=== PATIENT | female | born 1980 ===

== ENCOUNTER 2017-03-21 16:49 | Emergency (ER) | payer OTHER ==
[2017-03-21 17:17] VITALS: BP 124/77; PULSE 98; RESP 16; TEMP 97.4; O2SAT 100
--- NOTE | 2017-03-21 17:43 | ED PDOC ---
Lower Extremity Pain/Injury Time Seen by Provider: 03/21/17 17:32 Chief Complaint (Nursing): Lower Extremity Problem/Injury Chief Complaint (Provider): Left knee pain History Per: Patient History/Exam Limitations: no limitations Onset/Duration Of Symptoms: Days (x2) Current Symptoms Are (Timing): Still Present Additional Complaint(s): 36 y/o female, approximately 16 weeks , presents to the emergency department complaining of pain behind the left knee since yesterday. No injury or trauma. Patient any chest pain or shortness of breath. PMD: Provider TBD Past Medical History Reviewed: Historical Data, Nursing Documentation, Vital Signs Vital Signs: Last Vital Signs Temp 97.4 F L 03/21/17 17:15 Pulse 98 H 03/21/17 17:15 Resp 16 03/21/17 17:15 BP 124/77 03/21/17 17:15 Pulse Ox 100 03/21/17 17:15 - Medical History PMH: No Chronic Diseases - Family History Family History: States: Unknown Family Hx - Home Medications Home Medications: Ambulatory Orders Medication Instructions Recorded Acetaminophen [Acetaminophen Extra 2 tab PO Q6 PRN #24 tablet 03/21/17 Strength] - Allergies Allergies/Adverse Reactions: Allergies Allergy/AdvReac Type Severity Reaction Status Date / Time No Known Allergies Allergy Verified 03/21/17 17:15 Review of Systems ROS Statement: Except As Marked, All Systems Reviewed And Found Negative Cardiovascular: Negative for: Chest Pain Respiratory: Negative for: Shortness of Breath Musculoskeletal: Positive for: Leg Pain (left knee) Neurological: Negative for: Weakness, Numbness Physical Exam - Reviewed Nursing Documentation Reviewed: Yes Vital Signs Reviewed: Yes - Physical Exam Appears: Positive for: Well, Non-toxic, No Acute Distress Head Exam: Positive for: ATRAUMATIC, NORMAL INSPECTION, NORMOCEPHALIC Skin: Positive for: Normal Color, Warm, Dry Eye Exam: Positive for: EOMI, Normal appearance, PERRL Pulses-Dorsalis Pedis (L): 2+ Pulses-Dorsalis Pedis (R): 2+ Extremity: Positive for: Capillary Refill (< 2 sec). Negative for: Tenderness ( bony tenderness), Swelling, Other (Homans sign) Neurologic/Psych: Positive for: Alert, Oriented. Negative for: Motor/Sensory Deficits - ECG O2 Sat by Pulse Oximetry: 100 (RA) Pulse Ox Interpretation: Normal - Progress ED Course And Treament: DUPLEX LEFT LEG: NEG FOR DVT Medical Decision Making Medical Decision Making: Initial Impression: 36 y/o female with left knee pain, r/o DVT Time: 17:36 Initial Plan: --US Duplex Lower Extremity Vein, Left --Reevaluation Scribe Attestation: Documented by Gisela Mercedes, acting as a scribe for Kobe Francis PA-C Provider Scribe Attestation: All medical record entries made by the Scribe were at my direction and personally dictated by me. I have reviewed the chart and agree that the record accurately reflects my personal performance of the history, physical exam, medical decision making, and the department course for this patient. I have also personally directed, reviewed, and agree with the discharge instructions and disposition. Disposition - Clinical Impression Clinical Impression: Knee pain, left - Patient ED Disposition Is Patient to be Admitted: No - Disposition Disposition: Routine/Home Disposition Time: 18:36 Condition: FAIR Prescriptions: Acetaminophen [Acetaminophen Extra Strength] 2 tab PO Q6 PRN #24 tablet PRN Reason: Pain, Moderate (4-7) Instructions: Knee Pain (ED) Forms: [facility] (Armenian)
--- NOTE | 2017-03-21 18:42 | US ---
Left lower extremity ultrasound. Indication: Rule out DVT Technique: Duplex ultrasound evaluation of the left lower extremity Comparison: None available Findings: There is normal flow, compressibility, and augmentation of the left common femoral, femoral, and popliteal veins. The left posterior tibial veins appear patent and compress normally Impression: No evidence of deep venous thrombosis in the left lower extremity.
== END 2017-03-21 19:08 | disposition home or self-care (01) ==
LOC: H.ER 16:49
DX: M25.562 Pain in left knee (principal); Z33.1 Pregnant state, incidental